=== PATIENT | male | born 1930 | race Caucasian/White ===

== ENCOUNTER 2020-09-08 09:18 | Inpatient (IN) ==
[2020-09-08] MEDS ORDERED: 0.9 % Sodium Chloride 500 ML IVC ONE (09:24)
[2020-09-08] MEDS ORDERED: 0.9 % Sodium Chloride 1,000 ML IVC SCH ×2 (09:30→13:21)
[2020-09-08 09:48] LABS: Bilirubin,Urine Negative (Negative); Blood,Urine Moderate (Negative); Clarity,Urine Turbid (Clear); Color,Urine Yellow (Yellow); Glucose,Urine (UA) Normal (Normal); Ketones,Urine Negative (Negative); Leukocyte Esterase,Urine Large (Negative); Nitrite,Urine Positive (Negative); Protein,Urine 100 mg/dL (Neg-Trace); Specific Gravity,Urine 1.025 (1.010-1.025)
[2020-09-08 09:53] LABS: RBC,Urine TNTC per hpf (0-3); Squamous Epithelial Cell,Urine Few per hpf (None-Few); WBC,Urine TNTC per hpf (0-3)
[2020-09-08 09:54] LABS: Bacteria,Urine Many per hpf (None-Few); Mucus,Urine Many per lpf (None-Few)
[2020-09-08 10:11] LABS: Basophils % 0.3 %; Eosinophils % 0.3 %; Hematocrit 35.9 % (37.5-50.1); Hemoglobin 11.4 g/dL (12.9-16.9); Immature Granulocytes % 0.7 % (0-4); Lymphocytes # 0.5 K/mcL (0.6-4.6); Lymphocytes % 6.4 %; Mean Corpuscular HGB Conc 31.8 g/dL (31.6-35.5); Mean Corpuscular Hemoglobin 29.4 pg (28.0-33.3); Mean Corpuscular Volume 92.5 fL (83.0-100.0); Mean Platelet Volume 8.9 fL (9.4-12.4); Monocytes # 0.5 K/mcL (0.0-1.3); Monocytes % 6.3 %; Neutrophils # 6.6 K/mcL (1.6-8.9); Platelet Count 387 K/mcL (140-400); Red Blood Count 3.88 M/mcL (4.19-5.50); Red Cell Distribution Width 14.6 % (11.5-14.5); White Blood Count 7.7 K/mcL (4.3-11.1)
[2020-09-08 10:26] LABS: INR 1.3
[2020-09-08 10:27] LABS: Prothrombin Time 14.7 Seconds (9.4-12.1)
[2020-09-08 10:28] LABS: Troponin I < 0.03 ng/mL (< 0.04)
[2020-09-08 10:32] LABS: Alanine Aminotransferase 5 Units/L (7-52); Albumin 3.1 g/dL (3.5-5.7); Albumin/Globulin Ratio 1.2 (1.1-2.2); Alkaline Phosphatase 57 Units/L (34-104); Aspartate Amino Transferase 10 Units/L (13-39); BUN/Creatinine Ratio 13 (6-26); Bilirubin,Direct 0.3 mg/dL (0.0-0.2); Bilirubin,Indirect 0.5 mg/dL (0.0-1.0); Bilirubin,Total 0.8 mg/dL (0.3-1.0); Blood Urea Nitrogen 19 mg/dL (8-23); Calcium 8.6 mg/dL (8.6-10.3); Carbon Dioxide 23 mEq/L (23-29); Chloride 106 mEq/L (98-107); Ethanol < 10 mg/dL (Less than 10); Globulin 2.5 g/dL (2.4-3.5); Glucose 144 mg/dL (70-105); Osmolality,Calculated 291 (280-300); Potassium 3.7 mEq/L (3.5-5.1); Sodium 138 mEq/L (136-145); Total Protein 5.6 g/dL (6.4-8.9); eGFR For African Americans 57 (> 60); eGFR For Non-African Americans 47 (> 60)
[2020-09-08] MEDS ORDERED: cefTRIAXone 2,000 MG in 0.9 % Sodium Chloride Mini Bag 100 ML IVPB ONE (10:36)
[2020-09-08] MEDS ORDERED: Haloperidol Lactate 5 MG/ML VIAL IVP ONE (10:38)
[2020-09-08] MEDS ORDERED: Haloperidol Lactate 5 MG/ML VIAL IVP PRN ×2 (12:57→13:21)
[2020-09-08] MEDS ORDERED: Naloxone 0.4 MG/ML INJ IVP PRN (13:21)
[2020-09-08] MEDS: 0.9 % Sodium Chloride 1,000 ML IVC SCH ×2 (13:58→23:33)
[2020-09-08] MEDS: polyethylene glycoL 3350 17 GM POWD.PACK PO PRN (19:03)
[2020-09-08] MEDS: Famotidine 20 MG TABLET PO SCH (19:52)
[2020-09-08] MEDS: gemfibroziL 600 MG TABLET PO SCH (19:52)
[2020-09-08] MEDS: QUEtiapine Fumarate 25 MG TABLET PO SCH (19:53)
[2020-09-09 06:45] LABS: Basophils % 0.4 %; Eosinophils # 0.1 K/mcL (0.0-0.6); Eosinophils % 1.7 %; Hematocrit 34.7 % (37.5-50.1); Hemoglobin 11.2 g/dL (12.9-16.9); Immature Granulocytes % 0.3 % (0-4); Lymphocytes # 1.5 K/mcL (0.6-4.6); Lymphocytes % 21.4 %; Mean Corpuscular HGB Conc 32.3 g/dL (31.6-35.5); Mean Corpuscular Hemoglobin 29.8 pg (28.0-33.3); Mean Corpuscular Volume 92.3 fL (83.0-100.0); Mean Platelet Volume 9.2 fL (9.4-12.4); Monocytes # 0.6 K/mcL (0.0-1.3); Monocytes % 8.5 %; Neutrophils # 4.9 K/mcL (1.6-8.9); Platelet Count 377 K/mcL (140-400); Red Blood Count 3.76 M/mcL (4.19-5.50); Red Cell Distribution Width 14.7 % (11.5-14.5); Segmented Neutrophils % 67.7 %; White Blood Count 7.2 K/mcL (4.3-11.1)
[2020-09-09 07:02] LABS: BUN/Creatinine Ratio 14 (6-26); Blood Urea Nitrogen 15 mg/dL (8-23); Calcium 8.5 mg/dL (8.6-10.3); Carbon Dioxide 22 mEq/L (23-29); Chloride 109 mEq/L (98-107); Glucose 89 mg/dL (70-105); Magnesium 2.1 mg/dL (1.6-2.6); Osmolality,Calculated 288 (280-300); Phosphorous 2.8 mg/dL (2.7-4.5); Potassium 3.7 mEq/L (3.5-5.1); Sodium 139 mEq/L (136-145); eGFR For African Americans > 60 (> 60); eGFR For Non-African Americans > 60 (> 60)
[2020-09-09] MEDS: Famotidine 20 MG TABLET PO SCH ×2 (09:35→20:10)
[2020-09-09] MEDS: Aspirin Enteric Coated 81 MG Tablet PO SCH (09:35)
[2020-09-09] MEDS: Cyanocobalamin (B-12) 1,000 MCG TABLET PO SCH (09:35)
[2020-09-09] MEDS: Finasteride 5 MG TABLET PO SCH (09:35)
[2020-09-09] MEDS: gemfibroziL 600 MG TABLET PO SCH ×2 (09:36→20:10)
[2020-09-09] MEDS: Metoprolol XL (24 HR) Succ 25 MG TAB.ER.24H PO SCH (09:36)
[2020-09-09] MEDS: lisinopriL 20 MG TABLET PO SCH (09:37)
[2020-09-09] MEDS ORDERED: Potassium Chloride Elixir 20 MEQ/15 ML UDC PO ONE (10:09)
[2020-09-09] MEDS: cefTRIAXone 2,000 MG in Water for inj. (sterile) 20 ML IVP SCH (13:49)
[2020-09-09] MEDS: Cholecalciferol (D-3) 1,000 UNIT (25MCG) TABLET PO SCH (13:57)
[2020-09-09] MEDS: QUEtiapine Fumarate 25 MG TABLET PO SCH (20:10)
[2020-09-10 06:55] LABS: Basophils % 0.6 %; Eosinophils # 0.2 K/mcL (0.0-0.6); Eosinophils % 3.4 %; Hematocrit 36.2 % (37.5-50.1); Hemoglobin 11.5 g/dL (12.9-16.9); Immature Granulocytes % 0.6 % (0-4); Lymphocytes # 1.5 K/mcL (0.6-4.6); Lymphocytes % 22.7 %; Mean Corpuscular HGB Conc 31.8 g/dL (31.6-35.5); Mean Corpuscular Hemoglobin 29.3 pg (28.0-33.3); Mean Corpuscular Volume 92.3 fL (83.0-100.0); Mean Platelet Volume 9.4 fL (9.4-12.4); Monocytes # 0.7 K/mcL (0.0-1.3); Monocytes % 10.1 %; Neutrophils # 4.2 K/mcL (1.6-8.9); Platelet Count 386 K/mcL (140-400); Red Blood Count 3.92 M/mcL (4.19-5.50); Red Cell Distribution Width 14.7 % (11.5-14.5); Segmented Neutrophils % 62.6 %; White Blood Count 6.7 K/mcL (4.3-11.1)
[2020-09-10 07:16] LABS: BUN/Creatinine Ratio 16 (6-26); Blood Urea Nitrogen 15 mg/dL (8-23); Carbon Dioxide 24 mEq/L (23-29); Chloride 106 mEq/L (98-107); Glucose 83 mg/dL (70-105); Osmolality,Calculated 288 (280-300); Potassium 3.9 mEq/L (3.5-5.1); Sodium 139 mEq/L (136-145); eGFR For African Americans > 60 (> 60); eGFR For Non-African Americans > 60 (> 60)
[2020-09-10] MEDS: Cholecalciferol (D-3) 1,000 UNIT (25MCG) TABLET PO SCH (09:55)
[2020-09-10] MEDS: Famotidine 20 MG TABLET PO SCH ×2 (09:56→20:20)
[2020-09-10] MEDS: lisinopriL 20 MG TABLET PO SCH (09:56)
[2020-09-10] MEDS: gemfibroziL 600 MG TABLET PO SCH ×2 (09:56→20:21)
[2020-09-10] MEDS: Finasteride 5 MG TABLET PO SCH (09:56)
[2020-09-10] MEDS: Aspirin Enteric Coated 81 MG Tablet PO SCH (09:56)
[2020-09-10] MEDS: Metoprolol XL (24 HR) Succ 25 MG TAB.ER.24H PO SCH (09:57)
[2020-09-10] MEDS: polyethylene glycoL 3350 17 GM POWD.PACK PO PRN (09:57)
[2020-09-10] MEDS: Cyanocobalamin (B-12) 1,000 MCG TABLET PO SCH (16:18)
[2020-09-10] MEDS: cefTRIAXone 2,000 MG in Water for inj. (sterile) 20 ML IVP SCH (16:19)
[2020-09-10] MEDS: QUEtiapine Fumarate 25 MG TABLET PO SCH (20:21)
[2020-09-11 07:13] LABS: Basophils # 0.1 K/mcL (0.0-0.2); Basophils % 0.7 %; Eosinophils # 0.3 K/mcL (0.0-0.6); Eosinophils % 3.9 %; Hemoglobin 11.6 g/dL (12.9-16.9); Immature Granulocytes % 0.4 % (0-4); Lymphocytes # 1.8 K/mcL (0.6-4.6); Lymphocytes % 25.7 %; Mean Corpuscular HGB Conc 32.2 g/dL (31.6-35.5); Mean Corpuscular Hemoglobin 29.6 pg (28.0-33.3); Mean Corpuscular Volume 91.8 fL (83.0-100.0); Mean Platelet Volume 9.3 fL (9.4-12.4); Monocytes # 0.7 K/mcL (0.0-1.3); Monocytes % 9.9 %; Neutrophils # 4.1 K/mcL (1.6-8.9); Platelet Count 376 K/mcL (140-400); Red Blood Count 3.92 M/mcL (4.19-5.50); Red Cell Distribution Width 14.7 % (11.5-14.5); Segmented Neutrophils % 59.4 %; White Blood Count 6.9 K/mcL (4.3-11.1)
[2020-09-11 07:42] LABS: BUN/Creatinine Ratio 15 (6-26); Blood Urea Nitrogen 15 mg/dL (8-23); Calcium 9.2 mg/dL (8.6-10.3); Carbon Dioxide 26 mEq/L (23-29); Chloride 105 mEq/L (98-107); Glucose 86 mg/dL (70-105); Osmolality,Calculated 286 (280-300); Sodium 138 mEq/L (136-145); eGFR For African Americans > 60 (> 60); eGFR For Non-African Americans > 60 (> 60)
[2020-09-11] MEDS: Aspirin Enteric Coated 81 MG Tablet PO SCH (08:46)
[2020-09-11] MEDS: Metoprolol XL (24 HR) Succ 25 MG TAB.ER.24H PO SCH (08:46)
[2020-09-11] MEDS: Famotidine 20 MG TABLET PO SCH ×2 (08:48→22:21)
[2020-09-11] MEDS: Cyanocobalamin (B-12) 1,000 MCG TABLET PO SCH (08:50)
[2020-09-11] MEDS: Cholecalciferol (D-3) 1,000 UNIT (25MCG) TABLET PO SCH (08:50)
[2020-09-11] MEDS: lisinopriL 20 MG TABLET PO SCH (08:50)
[2020-09-11] MEDS: Finasteride 5 MG TABLET PO SCH (08:51)
[2020-09-11] MEDS: gemfibroziL 600 MG TABLET PO SCH ×2 (08:51→22:21)
[2020-09-11] MEDS: cefTRIAXone 1,000 MG in Water for inj. (sterile) 10 ML IVP SCH (08:52)
[2020-09-11] MEDS ORDERED: Haloperidol Lactate 5 MG/ML VIAL IVP PRN (16:59)
[2020-09-11] MEDS: QUEtiapine Fumarate 25 MG TABLET PO SCH (22:20)
[2020-09-12 07:33] VITALS: BP 111/82
[2020-09-12] MEDS: Cyanocobalamin (B-12) 1,000 MCG TABLET PO SCH (09:32)
[2020-09-12] MEDS: Finasteride 5 MG TABLET PO SCH (09:32)
[2020-09-12] MEDS: Cholecalciferol (D-3) 1,000 UNIT (25MCG) TABLET PO SCH (09:32)
[2020-09-12] MEDS: gemfibroziL 600 MG TABLET PO SCH (09:32)
[2020-09-12] MEDS: Aspirin Enteric Coated 81 MG Tablet PO SCH (09:32)
[2020-09-12] MEDS: Famotidine 20 MG TABLET PO SCH (09:33)
[2020-09-12] MEDS: lisinopriL 20 MG TABLET PO SCH (09:34)
[2020-09-12] MEDS: Metoprolol XL (24 HR) Succ 25 MG TAB.ER.24H PO SCH (09:34)
[2020-09-12] MEDS: cefTRIAXone 1,000 MG in Water for inj. (sterile) 10 ML IVP SCH (13:12)
== END 2020-09-12 14:08 | disposition home or self-care (01) | DRG 689 ==
LOC: EMEROOPIK 09:18 → INPPIK 09:18
PROVIDERS: ADMIT Family Medicine; ATTEND Family Medicine

== ENCOUNTER 2021-03-19 12:49 | Observation (INO) ==
[2021-03-19 13:50] LABS: Basophils % 0.2 %; Eosinophils # 0.1 K/mcL (0.0-0.6); Eosinophils % 0.8 %; Hematocrit 36.3 % (37.5-50.1); Hemoglobin 11.9 g/dL (12.9-16.9); Immature Granulocytes % 0.5 % (0-4); Lymphocytes # 1.1 K/mcL (0.6-4.6); Lymphocytes % 9.8 %; Mean Corpuscular HGB Conc 32.8 g/dL (31.6-35.5); Mean Corpuscular Hemoglobin 30.5 pg (28.0-33.3); Mean Corpuscular Volume 93.1 fL (83.0-100.0); Mean Platelet Volume 9.3 fL (9.4-12.4); Monocytes # 0.8 K/mcL (0.0-1.3); Monocytes % 7.5 %; Neutrophils # 8.8 K/mcL (1.6-8.9); Platelet Count 300 K/mcL (140-400); Red Cell Distribution Width 13.1 % (11.5-14.5); Segmented Neutrophils % 81.2 %; White Blood Count 10.9 K/mcL (4.3-11.1)
[2021-03-19 13:54] LABS: Bilirubin,Urine Negative (Negative); Blood,Urine Negative (Negative); Clarity,Urine Slightly Cloudy (Clear); Color,Urine Yellow (Yellow); Glucose,Urine (UA) Normal (Normal); Ketones,Urine Negative (Negative); Leukocyte Esterase,Urine Negative (Negative); Nitrite,Urine Negative (Negative); Protein,Urine Negative (Neg-Trace); Urobilinogen,Urine Normal (Normal)
[2021-03-19 13:57] LABS: INR 1.1; Prothrombin Time 12.4 Seconds (9.4-12.1)
[2021-03-19 13:59] LABS: Squamous Epithelial Cell,Urine Few per hpf (None-Few)
[2021-03-19 14:00] LABS: Activated Partial Thrombo Time 30.7 Seconds (26.0-36.0)
[2021-03-19 14:00] LABS: Bacteria,Urine Few per hpf (None-Few)
[2021-03-19 14:30] LABS: Alanine Aminotransferase 12 Units/L (7-52); Albumin 3.6 g/dL (3.5-5.7); Albumin/Globulin Ratio 1.5 (1.1-2.2); Alkaline Phosphatase 69 Units/L (34-104); Amylase 247 Units/L (29-103); Aspartate Amino Transferase 14 Units/L (13-39); BUN/Creatinine Ratio 14 (6-26); Bilirubin,Total 0.8 mg/dL (0.3-1.0); Blood Urea Nitrogen 14 mg/dL (8-23); Calcium 8.8 mg/dL (8.6-10.3); Carbon Dioxide 24 mEq/L (23-29); Chloride 101 mEq/L (98-107); Globulin 2.4 g/dL (2.4-3.5); Glucose 114 mg/dL (70-105); Lipase 1304 Units/L (11-82); Osmolality,Calculated 275 (280-300); Potassium 4.1 mEq/L (3.5-5.1); Sodium 132 mEq/L (136-145); Troponin I < 0.03 ng/mL (< 0.04); eGFR For African Americans > 60 (> 60); eGFR For Non-African Americans > 60 (> 60)
[2021-03-19] MEDS ORDERED: Isovue-370 500 ML BOTTLE IVP ONE (14:33)
[2021-03-19] MEDS ORDERED: Naloxone 0.4 MG/ML INJ IVP PRN (15:54)
[2021-03-19] MEDS ORDERED: Ondansetron 4 MG/2 ML VIAL IVP PRN (15:54)
[2021-03-19] MEDS ORDERED: Ibuprofen 400 MG TABLET PO PRN (15:54)
[2021-03-19] MEDS: 0.9 % Sodium Chloride 1,000 ML IVC SCH (17:56)
[2021-03-19] MEDS ORDERED: *HR* LORazepam 2 MG/ML VIAL IVP PRN (18:46)
[2021-03-19] MEDS: gemfibroziL 600 MG TABLET PO SCH (20:13)
[2021-03-19] MEDS: Famotidine 20 MG TABLET PO SCH (20:16)
[2021-03-19] MEDS ORDERED: QUEtiapine Fumarate 25 MG TABLET PO SCH (21:00)
[2021-03-19] MEDS ORDERED: Haloperidol Lactate 5 MG/ML VIAL IM ONE (23:28)
[2021-03-20] MEDS ORDERED: QUEtiapine Fumarate 25 MG TABLET PO ONE (01:03)
[2021-03-20] MEDS: 0.9 % Sodium Chloride 1,000 ML IVC SCH ×3 (02:25→19:31)
[2021-03-20 07:38] LABS: Hematocrit 37.3 % (37.5-50.1); Hemoglobin 12.2 g/dL (12.9-16.9); Mean Corpuscular HGB Conc 32.7 g/dL (31.6-35.5); Mean Corpuscular Hemoglobin 30.3 pg (28.0-33.3); Mean Corpuscular Volume 92.8 fL (83.0-100.0); Mean Platelet Volume 9.3 fL (9.4-12.4); Platelet Count 264 K/mcL (140-400); Red Blood Count 4.02 M/mcL (4.19-5.50); Red Cell Distribution Width 13.2 % (11.5-14.5); White Blood Count 12.3 K/mcL (4.3-11.1)
[2021-03-20 07:54] LABS: BUN/Creatinine Ratio 12 (6-26); Blood Urea Nitrogen 11 mg/dL (8-23); Calcium 8.6 mg/dL (8.6-10.3); Carbon Dioxide 23 mEq/L (23-29); Chloride 103 mEq/L (98-107); Chol/HDL Ratio 2.7 (0-4.9); Cholesterol 141 mg/dL (< 200); Glucose 92 mg/dL (70-105); HDL Cholesterol 52 mg/dL (40-59); LDL Cholesterol,Calculated 83 mg/dL (< 100); Lipase 385 Units/L (11-82); Magnesium 1.9 mg/dL (1.6-2.6); Osmolality,Calculated 277 (280-300); Potassium 4.1 mEq/L (3.5-5.1); Sodium 134 mEq/L (136-145); Triglycerides 31 mg/dL (< 150); eGFR For African Americans > 60 (> 60); eGFR For Non-African Americans > 60 (> 60)
[2021-03-20] MEDS: Loratadine 10 MG TABLET PO SCH (08:41)
[2021-03-20] MEDS: Famotidine 20 MG TABLET PO SCH ×2 (08:42→20:06)
[2021-03-20] MEDS: lisinopriL 20 MG TABLET PO SCH (08:42)
[2021-03-20] MEDS: Metoprolol XL (24 HR) Succ 25 MG TAB.ER.24H PO SCH (08:43)
[2021-03-20] MEDS: gemfibroziL 600 MG TABLET PO SCH ×2 (08:43→20:07)
[2021-03-20] MEDS: Aspirin Enteric Coated 81 MG Tablet PO SCH (08:43)
[2021-03-20] MEDS: Finasteride 5 MG TABLET PO SCH (08:43)
[2021-03-20] MEDS ORDERED: gemfibroziL 600 MG TABLET PO SCH (09:00)
[2021-03-21 06:44] VITALS: PULSE 111; RESP 18
[2021-03-21 08:47] LABS: Hematocrit 37.9 % (37.5-50.1); Hemoglobin 12.2 g/dL (12.9-16.9); Mean Corpuscular HGB Conc 32.2 g/dL (31.6-35.5); Mean Corpuscular Hemoglobin 30.6 pg (28.0-33.3); Mean Platelet Volume 9.6 fL (9.4-12.4); Platelet Count 272 K/mcL (140-400); Red Blood Count 3.99 M/mcL (4.19-5.50); Red Cell Distribution Width 13.2 % (11.5-14.5); White Blood Count 12.5 K/mcL (4.3-11.1)
[2021-03-21 08:53] LABS: BUN/Creatinine Ratio 16 (6-26); Blood Urea Nitrogen 15 mg/dL (8-23); Calcium 8.4 mg/dL (8.6-10.3); Carbon Dioxide 18 mEq/L (23-29); Chloride 106 mEq/L (98-107); Glucose 83 mg/dL (70-105); Lipase 54 Units/L (11-82); Osmolality,Calculated 276 (280-300); Potassium 4.2 mEq/L (3.5-5.1); Sodium 133 mEq/L (136-145); eGFR For African Americans > 60 (> 60); eGFR For Non-African Americans > 60 (> 60)
[2021-03-21] MEDS: Loratadine 10 MG TABLET PO SCH (09:22)
[2021-03-21] MEDS: Metoprolol XL (24 HR) Succ 25 MG TAB.ER.24H PO SCH (09:22)
[2021-03-21] MEDS: Famotidine 20 MG TABLET PO SCH (09:23)
[2021-03-21] MEDS: Finasteride 5 MG TABLET PO SCH (09:23)
[2021-03-21] MEDS: gemfibroziL 600 MG TABLET PO SCH (09:23)
[2021-03-21] MEDS: lisinopriL 20 MG TABLET PO SCH (09:23)
[2021-03-21] MEDS: Aspirin Enteric Coated 81 MG Tablet PO SCH (09:23)
[2021-03-21 11:19] VITALS: BP 116/66; TEMP 97.5; O2SAT 93
[2021-03-21] MEDS ORDERED: Famotidine 20 MG TABLET PO SCH (16:30)
== END 2021-03-21 15:26 | disposition home or self-care (01) ==
LOC: INPPIK 12:49 → EMEROOPIK 12:49 → INPPIK 17:09
PROVIDERS: ADMIT Family Medicine; ATTEND Family Medicine